=== PATIENT | female | born 1995 | race Asian ===

== ENCOUNTER 2021-05-02 07:59 | Day surgery (SDC) | payer OTHER ==
[~2021-05-02] VITALS: Ht 152.4 cm; Wt 84.3 kg
[~2021-05-02 07:59] MED LIST: APAP500T10 PO; IBUP80TA PO; LIDOCAINE 2% 100MG/5ML SDV (FOR ANES.) As Ordered ONE; NS 1,000 ML IV ONE; SPRI28TA PO; THERTAB52 PO; propofoL 200 MG/20 ML VIAL As Ordered ONE
--- NOTE | 2021-05-02 09:29 | ROOR ---
Patient Name: Wendie Goodman Procedure Date: 05/02/2021 9:11 AM Date of : 1995 Age: 25 Room: [facility] Gender: Female Note Status: Finalized Procedure: Total Colonoscopy to Cecum + ileoscopy + Bx Indications: Lower abdominal pain, Clinically significant diarrhea of unexplained origin, Rectal bleeding, Weight loss Providers: Baldemar Garay MD Referring MD: Bjorn Reyes Md Requesting Provider: Medicines: Monitored Anesthesia Care Complications: No immediate complications. Procedure: Pre-Anesthesia Assessment: - The heart rate, respiratory rate, oxygen saturations, blood pressure, adequacy of pulmonary ventilation, and response to care were monitored throughout the procedure. The Colonoscope was introduced through the anus and advanced to the terminal ileum, with identification of the appendiceal orifice and IC valve. The colonoscopy was performed without difficulty. The patient tolerated the procedure well. The quality of the bowel preparation was excellent. Findings: The perianal and digital rectal examinations were normal. Non-bleeding internal hemorrhoids were found during retroflexion. The hemorrhoids were small and Grade I (internal hemorrhoids that do not prolapse). No other significant abnormalities were identified in a careful examination of the remainder of the colon. The terminal ileum appeared normal. Biopsies for histology were taken with a cold forceps from the ascending colon, transverse colon and descending colon for evaluation of microscopic colitis. The exam was otherwise without abnormality on direct and retroflexion views. Impression: - Non-bleeding internal hemorrhoids. - The examined portion of the ileum was normal. - The examination was otherwise normal on direct and retroflexion views. - Biopsies were taken with a cold forceps from the ascending colon, transverse colon and descending colon for evaluation of microscopic colitis. - The exam was otherwise normal to the cecum. Recommendation: - Patient has a contact number available for emergencies. The signs and symptoms of potential delayed complications were discussed with the patient. Return to normal activities tomorrow. Written discharge instructions were provided to the patient. - High fiber diet. - Discharge patient to home. - Continue present medications. - Await pathology results. - Telephone GI clinic for pathology results in 1 week. - Repeat colonoscopy at age 49 for screening purposes. - Return to referring physician. - The findings and recommendations were discussed with the patient. Procedure Code(s): --- Professional --- 86425, Colonoscopy, flexible; with biopsy, single or multiple Diagnosis Code(s): --- Professional --- K64.0, First degree hemorrhoids R10.30, Lower abdominal pain, unspecified R19.7, Diarrhea, unspecified K62.5, Hemorrhage of anus and rectum R63.4, Abnormal weight loss CPT copyright 2019 [employer]. All rights reserved. The codes documented in this report are preliminary and upon senior [employer] network engineer review may be revised to meet current compliance requirements. Baldemar Garay MD Baldemar Garay MD 05/02/2021 9:29:17 AM Electronically signed by Baldemar Garay MD Number of Addenda: 0 Note Initiated On: 05/02/2021 9:11 AM Estimated Blood Loss: Estimated blood loss: none.
[2021-05-02 09:58] VITALS: BP 100/67
== END 2021-05-02 10:00 | disposition home or self-care (01) ==
LOC: M OPP 07:59
PROVIDERS: ATTEND Internal Medicine Gastroenterology
DX: K64.0 First degree hemorrhoids (principal); R10.30 Lower abdominal pain, unspecified; R19.7 Diarrhea, unspecified; K62.5 Hemorrhage of anus and rectum; R63.4 Abnormal weight loss; Z79.3 Long term (current) use of hormonal contraceptives

== ENCOUNTER → 2022-01-14 | Outpatient (REF) ==
[~2022-01-14] MED LIST changes: -LIDOCAINE 2% 100MG/5ML SDV (FOR ANES.) As Ordered ONE; -NS 1,000 ML IV ONE; -propofoL 200 MG/20 ML VIAL As Ordered ONE
== END ==
LOC: M PLAIMG 09:06
PROVIDERS: ATTEND Internal Medicine
DX: R52 Pain, unspecified (principal); R06.02 Shortness of breath

== ENCOUNTER 2022-06-10 10:14 | Emergency (ER) | payer OTHER ==
[~2022-06-10] VITALS: Ht 152.4 cm; Wt 93.2 kg
[2022-06-10] MEDS ORDERED: OMEP20TA2 PO (13:25)
[2022-06-10] MEDS ORDERED: PREN1CHW6 PO (13:25)
[2022-06-10] MEDS ORDERED: LEXA1TAB2 PO (13:25)
[2022-06-10] MEDS ORDERED: ACETAMINOPHEN TAB 650MG DOSE (2X325MG) PO ONE (13:30)
[2022-06-10 13:45] LABS: BASO % 0.3 % (0.0-1.0); EOS # 0.3 10^3/uL (0.0-0.5); EOS % 2.6 % (0.0-3.0); HEMATOCRIT 40.2 % (36.0-47.0); HEMOGLOBIN 13.5 g/dl (12.0-15.5); LYMPH # 2.8 10^3/uL (1.5-5.0); LYMPH % 28.9 % (24.0-44.0); MEAN CORPUSCULAR HEMOGLOBIN 30.9 pg (27.0-33.0); MEAN CORPUSCULAR HGB CONC 33.6 g/dl (32.0-36.5); MONO # 0.7 10^3/uL (0.0-0.8); MONO % 7.6 % (2.0-8.0); NEUTROPHILS # 5.9 10^3/uL (1.5-8.5); NEUTROPHILS % 60.2 % (36.0-66.0); PLATELET COUNT, AUTOMATED 376 10^3/uL (150-450); RED BLOOD COUNT 4.37 10^6/uL (4.00-5.40); WHITE BLOOD COUNT 9.7 10^3/uL (4.0-10.0)
[2022-06-10 14:09] LABS: LIPASE 40 U/L (12-53)
[2022-06-10 14:11] LABS: BILIRUBIN,DIRECT 0.2 MG/DL (<0.4); HCG, SERUM QUANTITATIVE 214.2 MIU/ML (<4.2)
[2022-06-10 14:24] LABS: ALBUMIN 3.6 G/DL (3.2-5.2); ALKALINE PHOSPHATASE 94 U/L (46-116); ALT/SGPT 22 U/L (7.0-40); AST/SGOT 21 U/L (<34); BILIRUBIN,TOTAL 0.5 MG/DL (0.3-1.2); BLOOD UREA NITROGEN 10 MG/DL (9-23); CALCIUM LEVEL 9.1 MG/DL (8.5-10.1); CARBON DIOXIDE LEVEL 28 MMOL/L (20-31); CHLORIDE LEVEL 102 MMOL/L (98-107); CREATININE FOR GFR 0.62 MG/DL (0.55-1.30); GLOMERULAR FILTRATION RATE > 60.0 (>60); GLUCOSE, FASTING 81 MG/DL (60-100); POTASSIUM SERUM 4.2 MMOL/L (3.5-5.1); SODIUM LEVEL 136 MMOL/L (136-145); TOTAL PROTEIN 7.5 G/DL (5.7-8.2)
[2022-06-10 15:46] VITALS: BP 99/68
[2022-06-10 16:16] LABS: GC DNA AMPLIFICATION NEGATIVE (NEGATIVE)
== END 2022-06-10 15:48 | disposition home or self-care (01) ==
LOC: M ED 10:14
DX: O34.81 Maternal care for other abnormalities of pelvic organs, first trimester (principal); N83.291 Other ovarian cyst, right side; Z3A.01 Less than 8 weeks gestation of pregnancy

== ENCOUNTER 2023-01-07 11:14 | Outpatient (CLI) | payer OTHER ==
[~2023-01-07] VITALS: Ht 149.9 cm; Wt 110.0 kg
[~2023-01-07 11:14] MED LIST changes: +LEXA1TAB2 PO; +OMEP20TA2 PO; +PREN1CHW6 PO
[2023-01-07 11:29] VITALS: BP 118/59; O2SAT 95
[2023-01-07] MEDS ORDERED: HOME MED LIST COMPLETE! XX SCH (11:50)
== END 2023-01-07 13:20 | disposition home or self-care (01) ==
LOC: M LDO 11:14
PROVIDERS: ATTEND Obstetrics & Gynecology
DX: O26.893 Other specified pregnancy related conditions, third trimester (principal); N89.8 Other specified noninflammatory disorders of vagina; Z3A.34 34 weeks gestation of pregnancy
CPT/HCPCS: 59025; G0463